=== PATIENT | female | born 1990 | race Caucasian/White ===

== ENCOUNTER → 2025-03-31 08:01 | Outpatient (REF) | payer BC, SELFPAY | LOC: PNTC 08:01 | PROVIDERS: ATTENDING PHYSICIAN Obstetrics & Gynecology | DX: Z34.82 Encounter for supervision of other normal pregnancy, second trimester (principal); O28.3 Abnormal ultrasonic finding on antenatal screening of mother; O35.03X0 Maternal care for (suspected) central nervous system malformation or damage in fetus, choroid plexus cysts, not applicable or unspecified | CPT/HCPCS: 76811 ==

== ENCOUNTER → 2025-04-27 09:55 | Outpatient (REF) | payer BC, SELFPAY | LOC: PNTC 09:55 | PROVIDERS: ATTENDING PHYSICIAN Obstetrics & Gynecology | DX: Z34.90 Encounter for supervision of normal pregnancy, unspecified, unspecified trimester (principal) | CPT/HCPCS: 76815 ==

== ENCOUNTER → 2025-06-01 12:31 | Outpatient (REF) | payer BC, SELFPAY | LOC: PNTC 12:31 | PROVIDERS: ATTENDING PHYSICIAN Student in an Organized Health Care Education/Training Program | DX: O36.8130 Decreased fetal movements, third trimester, not applicable or unspecified (principal) | CPT/HCPCS: 76815 ==

== ENCOUNTER → 2025-06-29 17:28 | Outpatient (REF) | payer BC, SELFPAY | LOC: PNTC 17:28 | PROVIDERS: ATTENDING PHYSICIAN Student in an Organized Health Care Education/Training Program | DX: O36.8130 Decreased fetal movements, third trimester, not applicable or unspecified (principal) | CPT/HCPCS: 59025; 76815 ==